=== PATIENT | male | born 1985 | race Caucasian/White ===

== ENCOUNTER 2018-11-01 17:31 | Emergency (ER) | payer OTHER ==
[~2018-11-01] VITALS: Ht 172.7 cm; Wt 69.8 kg
[2018-11-01] MEDS ORDERED: NORCO 5-325 TA1 EAC1 PO ×2 (19:47→19:48)
[2018-11-01] MEDS ORDERED: IBUPROFEN 800800 M1 PO (19:47)
[2018-11-01 20:15] VITALS: BP 131/84
== END 2018-11-01 20:15 | disposition home or self-care (01) ==
LOC: M.ERS 17:31
DX: S62.392A Other fracture of third metacarpal bone, right hand, initial encounter for closed fracture (principal); F41.9 Anxiety disorder, unspecified; F10.10 Alcohol abuse, uncomplicated; Z88.0 Allergy status to penicillin; W22.01XA Walked into wall, initial encounter; Y93.89 Activity, other specified; Y92.89 Other specified places as the place of occurrence of the external cause; Y99.8 Other external cause status

== ENCOUNTER 2018-11-22 15:31 | Emergency (ER) | payer OTHER ==
[~2018-11-22] VITALS: Ht 175.3 cm; Wt 77.1 kg
[~2018-11-22 15:31] MED LIST: IBUPROFEN 800800 M1 PO; NORCO 5-325 TA1 EAC1 PO
[2018-11-22] MEDS ORDERED: NEURONTIN600 MG PO (15:40)
[2018-11-22] MEDS ORDERED: CELEXA20 MG PO (15:40)
[2018-11-22] MEDS ORDERED: KEFLEX500 M1 PO (16:18)
[2018-11-22] MEDS ORDERED: BACTRIM DS TAB1 EACH PO (16:18)
[2018-11-22 16:34] VITALS: BP 115/83
== END 2018-11-22 16:35 | disposition home or self-care (01) ==
LOC: M.ERS 15:31
DX: L02.413 Cutaneous abscess of right upper limb (principal); F17.200 Nicotine dependence, unspecified, uncomplicated; F41.9 Anxiety disorder, unspecified; Z88.0 Allergy status to penicillin